=== PATIENT | male | born 1945 | race Caucasian/White ===

== ENCOUNTER → 2018-11-25 16:38 | Outpatient (CLI) | payer MEDICARE, BC, SELFPAY ==
[2018-11-25 18:12] LABS: BUN Creatinine Ratio 25.7 (6-22); Blood Urea Nitrogen 36 mg/dL (9-20); Calcium 10.1 mg/dL (8.4-10.2); Carbon Dioxide 27 mmol/L (22-32); Chloride 100 mmol/L (98-107); Estimated Glomerular Filt Rate 49.8 mL/min (>60); Glucose 110 mg/dL (80-110); HEMOLYSIS < 15 (0-50); Potassium 4.6 mmol/L (3.4-5.1); Sodium 138 mmol/L (137-145)
[2018-11-28 10:58] LABS: Ionized Calcium 5.2 mg/dL (4.8-5.6)
[2018-11-28 14:35] LABS: Parathyroid Hormone Int 23 pg/mL (14-64)
== END ==
PROVIDERS: PCP Internal Medicine; Visit Provider Internal Medicine
DX: E83.52 Hypercalcemia (principal); N18.2 Chronic kidney disease, stage 2 (mild)
CPT/HCPCS: 36415; 80048; 82330; 83970

== ENCOUNTER → 2019-11-27 10:12 | Outpatient (CLI) | payer MEDICARE, BC, SELFPAY ==
[2019-11-27 11:42] LABS: Albumin 4.6 g/dL (3.5-5.0); BUN Creatinine Ratio 20.3 (6-22); Blood Urea Nitrogen 27 mg/dL (9-20); Calcium 10.2 mg/dL (8.4-10.2); Carbon Dioxide 27 mmol/L (22-32); Chloride 103 mmol/L (98-107); Estimated Glomerular Filt Rate 52.7 mL/min (>60); Glucose 111 mg/dL (80-110); HEMOLYSIS < 15 (0-50); Phosphorous 3.7 mg/dL (2.3-3.7); Potassium 4.5 mmol/L (3.4-5.1); Sodium 139 mmol/L (137-145)
[2019-11-30 10:18] LABS: Lamotrigine Lamictal 6.2 ug/mL (2.0-20.0)
== END ==
PROVIDERS: PCP Internal Medicine; Referring Provider Psychiatry & Neurology Neurology; Visit Provider Psychiatry & Neurology Neurology
DX: G40.219 Localization-related (focal) (partial) symptomatic epilepsy and epileptic syndromes with complex partial seizures, intractable, without status epilepticus (principal)
CPT/HCPCS: 36415; 80069; 80175

== ENCOUNTER → 2020-08-11 09:31 | Outpatient (CLI) | payer MEDICARE, BC, SELFPAY ==
--- NOTE | 2020-08-11 09:34 | DI.RAD.S_ITS ---
PROCEDURE: XR HIP W PEL IF DONE RT 2V INDICATIONS: left groin pain TECHNIQUE: 3 views of the hip were acquired. COMPARISON: None. FINDINGS: Bones: No fractures or dislocations. No suspicious bony lesions. The visualized pelvic ring appears intact. Soft tissues: No suspicious soft tissue calcifications or masses. 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 A prior right dynamic hip screw is present, showing no evidence of loosening or disruption. Dictated by: Ricky Couch M.D. on 08/11/2020 at 10:53 Approved by: Ricky Couch M.D. on 08/11/2020 at 10:54
== END ==
PROVIDERS: PCP Internal Medicine; Referring Provider Internal Medicine; Visit Provider Internal Medicine
DX: R10.32 Left lower quadrant pain (principal); M16.12 Unilateral primary osteoarthritis, left hip
CPT/HCPCS: 73502

== ENCOUNTER → 2020-09-16 07:43 | Outpatient (CLI) | payer MEDICARE, BC, SELFPAY ==
[2020-09-16] MEDS: COVID-19 VACC #1, MRNA(MOD) 100 MCG/0.5 ML VIAL IM (07:47)
== END ==
PROVIDERS: PCP Internal Medicine; Visit Provider Internal Medicine
DX: Z23 Encounter for immunization (principal)
CPT/HCPCS: 0011A; 91301

== ENCOUNTER → 2020-10-14 07:54 | Outpatient (CLI) | payer MEDICARE, BC, SELFPAY ==
[2020-10-14] MEDS: COVID-19 VACC #2, MRNA(MOD) 100 MCG/0.5 ML VIAL IM (07:58)
== END ==
PROVIDERS: PCP Internal Medicine; Visit Provider Internal Medicine
DX: Z23 Encounter for immunization (principal)
CPT/HCPCS: 0012A; 91301

== ENCOUNTER → 2020-12-23 14:21 | Outpatient (CLI) | payer MEDICARE, BC, SELFPAY ==
[2020-12-23 15:44] LABS: C-Reactive Protein Quant < 0.5 mg/dL (<1.0); Uric Acid 8.7 mg/dL (3.5-8.5)
[2020-12-23 15:47] LABS: Erythrocyte Sedimentation Rate 3 MM/HR (0-15)
== END ==
PROVIDERS: PCP Internal Medicine; Referring Provider Internal Medicine; Visit Provider Internal Medicine
DX: M12.9 Arthropathy, unspecified (principal)
CPT/HCPCS: 36415; 84550; 85651; 86140

== ENCOUNTER 2021-02-09 12:37 | Emergency (ER) | payer MEDICARE, BC, SELFPAY ==
[2021-02-09 12:55] VITALS: BP 191/89; PULSE 61; RESP 14; TEMP 36.4; O2SAT 98; BMI 25.0
--- NOTE | 2021-02-09 13:01 | DI.RAD.S_ITS ---
PROCEDURE: XR LUMBAR SPINE 2-3V INDICATIONS: back pain TECHNIQUE: 3 views of the lumbar spine were acquired. COMPARISON: None. FINDINGS: Bones: 5 [id number] vertebrae are present. There is mild S-shaped scoliosis of lower thoracic and lumbar spine.. No vertebral body compression fractures. No spondylolisthesis. Mild degenerative endplate changes and bilateral facet arthrosis throughout No suspicious bony lesions. Soft tissues: Overlying bowel gas pattern is normal. Atherosclerotic calcifications throughout abdominal aorta and bilateral iliac arteries are seen. IMPRESSION: Mild scoliosis of thoracic and lumbar spine. No acute compression fracture or spondylolisthesis. Mild degenerative endplate changes are noted throughout lumbar spine. Dictated by: Gerardo Jones M.D. on 02/09/2021 at 13:38 Approved by: Gerardo Jones M.D. on 02/09/2021 at 13:40
[2021-02-09 14:57] VITALS: BP 134/84; PULSE 64; O2SAT 97
--- NOTE | 2021-02-09 18:13 | ED.BACK ---
HPI - Back Pain/Injury General Chief Complaint: Back Pain/Injury Stated Complaint: Lower Back Pain Time Seen by Provider: 02/09/21 17:42 Source: patient Limitations: no limitations History of Present Illness HPI Narrative: 75-year-old gentleman with a history of hyperlipidemia seizures and occasional back pain. He presents today complaining of low back pain and muscle spasm bilaterally lumbar area that is been present for about 3 weeks. He notes that his symptoms started on or about January 20 with no precipitating event or trauma he was seen by his primary care doctor on the and had a Toradol shot on the . Symptoms have not specifically improved. He describes it as a tight achy nonradicular pain not associated with any other findings. He does not have any abdominal pain, no constipation no spine interventions, no IV drug use and no history of any cancers. Today he has tried cyclobenzaprine which has not been effective. Was recently started on meloxicam and has taken 2 doses but has not seen that much change. Intermittent doses of ibuprofen ranging from 200-600 mg have not been that effective either. He notes that he does have some easy stretches that he has been trying at home but this too has not been helping. Related Data Home Medications Medication Instructions Recorded Confirmed cholecalciferol (vitamin D3) 125 5,000 unit PO DAILY 11/25/18 01/24/21 mcg (5,000 unit) capsule lamotrigine 100 mg tablet 300 mg PO BID tab 11/25/18 01/24/21 mecobalamin (vitamin B12) 1,000 1,000 mcg SL DAILY 11/25/18 01/24/21 mcg disintegrating tablet,sublingual vitamin B complex 1 tab PO DAILY 01/06/19 01/24/21 vit C,E,zinc,copper-mkriz0s 250 1 cap PO DAILY 12/23/20 01/24/21 mg-lutein 5 mg-zeaxanthin 1 mg capsule Previous Rx's Medication Instructions Recorded amlodipine 5 mg tablet 5 mg PO DAILY #90 tab 09/27/20 hydrochlorothiazide 25 mg tablet 25 mg PO QDAY #90 tab 09/27/20 losartan 25 mg tablet 25 mg PO DAILY #90 tab 09/27/20 diazepam 5 mg PO BID PRN #10 tab 02/09/21 Allergies Allergy/AdvReac Type Severity Reaction Status Date / Time No Known Drug Allergies Allergy Verified 02/09/21 12:55 Review of Systems Review of Systems Narrative: Remainder of complete review of systems is otherwise unremarkable except for that included in the HPI. Patient History Medical History Aortic valve sclerosis Balance problems (11/11/17) Benign prostatic hyperplasia (12/26/15) Chronic fatigue (03/28/16) Chronic left shoulder pain (01/30/17) Chronic renal failure, stage 2 (mild) Chronic right shoulder pain (11/11/17) Depression Epilepsy Essential hypertension Femur fracture, right (1986) Foot fracture, left (2002) Hearing loss History of seizure disorder (12/26/15) Low back pain (~11/2016) Lung nodule (12/26/15) Memory deficit Mixed hyperlipidemia Osteopenia (04/04/17) Shoulder dislocation Shoulder pain Skull fracture (1967) Surgical History Hx of discectomy Hx of surgical procedure Hx of transurethral resection of prostate (03/2015) Family History Father No problems noted. Mother No problems noted. Social History Smoking Status: Never smoker Smoking Status: Never smoker alcohol intake frequency: 3 or more drinks per day Substance Use Type: does not use Exam Narrative Exam Narrative: General: Alert appropriate in mild pain more comfortable when gently swaying from foot to foot while standing Respiratory: Able to speak in full sentences, no obvious respiratory distress Abdomen: Soft, no bruits no palpable masses Skin: No obvious rashes, warm and dry Neurologic: Grossly intact no obvious asymmetries or abnormalities Psych: appropriate insight and affect, cooperative Spine: No point tenderness along the thoracic or lumbar spine. He has some mild paraspinous spasm in the L4-L5 area that radiates into the top of his buttocks. There are no rashes. Initial Vital Signs Initial Vital Signs: Vital Signs Temperature 97.5 F L 02/09/21 12:55 Pulse Rate 61 02/09/21 12:55 Respiratory Rate 14 02/09/21 12:55 Blood Pressure 191/89 H 02/09/21 12:55 Pulse Oximetry 98 02/09/21 12:55 Course Orders Ordered: ED Orders 02/09/21 13:01 XR LSPINE 2-3 views [XR lumbar spine 2-3V] Stat Discontinued Medications Ketorolac Tromethamine (Ketorolac 30 Mg/Ml Vial) 30 mg IM NOW ONE Stop: 02/09/21 18:28 Vital Signs Vital signs: Vital Signs - 8 hr 02/09/21 12:55 02/09/21 14:57 Temperature 97.5 F L Pulse Rate 61 64 Respiratory Rate 14 Blood Pressure 191/89 H 134/84 Pulse Oximetry 98 [address] [facility] - Back Pain/Injury Medical Records Attestation: I reviewed the patient's medical records. Imaging Data X-ray lumbar spine: Radiologist's Impression: FINDINGS: Bones: 5 [id number] vertebrae are present. There is mild S-shaped scoliosis of lower thoracic and lumbar spine.. No vertebral body compression fractures. No spondylolisthesis. Mild degenerative endplate changes and bilateral facet arthrosis throughout No suspicious bony lesions. Soft tissues: Overlying bowel gas pattern is normal. Atherosclerotic calcifications throughout abdominal aorta and bilateral iliac arteries are seen. IMPRESSION: Mild scoliosis of thoracic and lumbar spine. No acute compression fracture or spondylolisthesis. Mild degenerative endplate changes are noted throughout lumbar spine. Dictated by: Gerardo Jones M.D. on 02/09/2021 at 13:38 MDM Narrative Medical decision making narrative: 75-year-old gentleman with 3 weeks of low back pain that is mainly consistent of spasm. He has not found much relief with nonsteroidals or cyclobenzaprine. Recently started on meloxicam. Has no ?red flag? findings to suggest severe pathology. Because of the duration of findings lumbar spine films are done today and reveal no significant abnormalities aside from mild scoliosis and no evidence of any lytic lesions that might be contributing to his pain. he did request a shot of Toradol in the emergency department which was given with significant relief of pain. Encouraged him to continue the meloxicam recently prescribed, a brief course of Valium for muscle spasm and a referral to physical therapy or all given. Questions were answered and he is safe for home discharge Discharge Plan Departure Patient Disposition: Home Clinical Impression: Acute back pain Qualifiers: Back pain location: low back pain Back pain laterality: bilateral Sciatica presence: without sciatica Qualified Code(s): M54.5 - Low back pain Instructions: DI for Low Back Pain Activity Restrictions/Additional Instructions: Thank you for coming in today I am sorry that you have been having such issues with her back. I would recommend that you continue the meloxicam that was prescribed by Dr. Diana. For a muscle relaxant, using diazepam sparingly may help you sleep better I think the most important point in getting you back to fully healthy is going to be physical therapy. I would encourage you to schedule a follow-up with Dr. Diana Prescriptions: New diazepam 5 mg tablet 5 mg PO BID PRN (Reason: muscle spasm) Qty: 10 RF: 0 No Action amlodipine 5 mg tablet 5 mg PO DAILY Qty: 90 RF: 3 hydrochlorothiazide 25 mg tablet 25 mg PO QDAY Qty: 90 RF: 3 losartan 25 mg tablet 25 mg PO DAILY Qty: 90 RF: 3 lamotrigine 100 mg tablet 300 mg PO BID RF: 0 cholecalciferol (vitamin D3) 5,000 unit capsule 5,000 unit PO DAILY RF: 0 mecobalamin (vitamin B12) 1,000 mcg tablet,disintegrating 1,000 mcg SL DAILY RF: 0 vitamin B complex tablet 1 tab PO DAILY RF: 0 Ocuvite Adult 50 Plus 250-5-1 mg capsule 1 cap PO DAILY RF: 0 Referrals: Jaime Cole MD [Primary Care Provider] -
== END 2021-02-09 18:40 | disposition home or self-care (01) ==
PROVIDERS: Emergency Provider Emergency Medicine; PCP Internal Medicine
DX: M54.5 Low back pain (principal)
CPT/HCPCS: 72100; 99281; 99283

== ENCOUNTER → 2021-06-30 10:33 | Outpatient (CLI) | payer MEDICARE, BC, SELFPAY ==
[2021-06-30] MEDS: COVID-19 VACC #3, MRNA(MOD) 50 MCG/0.25 ML VIAL IM (10:42)
== END ==
PROVIDERS: PCP Internal Medicine; Visit Provider Internal Medicine
DX: Z23 Encounter for immunization (principal)
CPT/HCPCS: 0013A; 91301

== ENCOUNTER → 2021-07-17 08:19 | Outpatient (CLI) | payer MEDICARE, BC, SELFPAY ==
[2021-07-17 11:55] LABS: COVID19 -Nasal RAPID Negative (Negative)
== END ==
PROVIDERS: PCP Internal Medicine; Visit Provider Physician Assistant
DX: Z20.822 Contact with and (suspected) exposure to COVID-19 (principal)
CPT/HCPCS: 87635; C9803

== ENCOUNTER 2021-07-18 06:54 | Day surgery (SDC) | payer MEDICARE, BC, SELFPAY ==
[2021-07-18 07:12] VITALS: BP 132/82; PULSE 65; RESP 16; TEMP 36.5; O2SAT 98; BMI 25.0
[2021-07-18] MEDS: CATARACT EYE COMPOUND (10 DROPS/SYRINGE) 3 DROPS EYE-OP ×3 (07:17→07:27)
[2021-07-18] MEDS: PROPARACAINE 0.5% OPHTH SOL 2 DROPS EYE-OP (07:21)
--- NOTE | 2021-07-18 08:06 | PM.PREOP ---
Pre-operative Note Interval Note History & Physical reviewed/Exam performed by Physician: Yes Changes to H&P: No
--- NOTE | 2021-07-18 08:06 | PM.OP.1 ---
Operative Date/Time/Diagnoses Pre-op diagnosis: Nuclear cataract right eye Procedure & Clinicians Procedure: Cataract Surgery Same procedure as scheduled: Yes Surgeon: Chan Montes Anesthesia Type: MAC +/- and Sedation Operative Notes Procedure in detail: Patient brought to the operating suite. Tetracaine drops placed in the right eye. Patient was prepped and draped in sterile manner. Wire lid speculum was placed in the eye. Betadine drops were placed on the eye. This was irrigated. Lidocaine jelly was placed on the eye. A paracentesis port was created with a side-port blade. 0.1 mL 1% preservative free lidocaine was injected into the anterior chamber. The anterior chamber was deepened with viscoelastic. 2.6 mm keratome was used to create a temporal clear corneal incision. Cystotome and Utrata forceps were used to create continuous tear capsulorrhexis. Balanced salt solution was used to hydro dissect the nucleus. The phacoemulsification handpiece was inserted and the nucleus was removed using the stop and chop technique. The irrigation aspiration handpiece was inserted and the remaining cortex was removed. Anterior chamber was deepened with viscoelastic. An Manjarrez DIB00 intraocular lens with a power of 22.5 was injected into the capsular bag. Irrigation aspiration handpiece was inserted and the remaining viscoelastic was removed. Incision was hydrated with balanced salt solution and found to be leak free with pressure with Weck-Narcisa sponges. 0.1 mL Vigamox injected anterior chamber. 0.3 mL Kenalog 10 mg was injected subconjunctivally. Lid speculum was removed. The patient left the operating room in excellent condition. Complications: none Post-operative Condition: stable Disposition: same day surgery
[2021-07-18] MEDS: HYALURONATE SODIUM 30 MG-10 MG/ML SYRINGES 1 BOX INTRAOCULA (08:24)
[2021-07-18] MEDS: BALANCED SALT IRRIG SOLN NO.2 500 ML, EPINEPHrine 1 MG IRR (08:25)
[2021-07-18] MEDS: TRIAMCINOLONE 50 MG/5 ML VIAL INJ (08:25)
[2021-07-18] MEDS: MOXIFLOXACIN INJ 4 MG/0.8 ML VIAL 0.5 MG EYE-OP (08:25)
[2021-07-18] MEDS: PHENYLEPHRINE/LIDOCAINE VIAL (OR) 0.2 ML EYE-OP (08:25)
[2021-07-18] MEDS: LIDOCAINE 2% (GLYDO) 6 ML GEL TOP (08:26)
[2021-07-18] MEDS: TETRACAINE 0.5% OPHTH DROPS 4 ML 2 DROPS EYE-OP (08:26)
[2021-07-18 08:37] VITALS: BP 123/74; PULSE 56; RESP 16; TEMP 36.5; O2SAT 98
== END 2021-07-18 08:59 | disposition home or self-care (01) ==
PROVIDERS: PCP Internal Medicine; Referring Provider Ophthalmology; Visit Provider Ophthalmology
PROC: (CPT 66984; principal; 2021-07-18 08:15)
DX: H25.11 Age-related nuclear cataract, right eye (principal); I10 Essential (primary) hypertension
CPT/HCPCS: 66984; J0171; J2250; J3301

== ENCOUNTER → 2021-07-31 10:10 | Outpatient (CLI) | payer MEDICARE, BC, SELFPAY ==
[2021-07-31 13:35] LABS: COVID19 -Nasal RAPID Negative (Negative)
== END ==
PROVIDERS: PCP Internal Medicine; Visit Provider Nurse Practitioner Family
DX: Z20.822 Contact with and (suspected) exposure to COVID-19 (principal)
CPT/HCPCS: 87635; C9803

== ENCOUNTER 2021-08-01 08:49 | Day surgery (SDC) | payer MEDICARE, BC, SELFPAY ==
[2021-08-01 09:08] VITALS: BP 134/80; PULSE 56; RESP 18; TEMP 36.6; O2SAT 98; BMI 25.0
[2021-08-01] MEDS: PROPARACAINE 0.5% OPHTH SOL 2 DROPS EYE-OP (09:19)
[2021-08-01] MEDS: CATARACT EYE COMPOUND (10 DROPS/SYRINGE) 3 DROPS EYE-OP (09:23)
--- NOTE | 2021-08-01 10:06 | PM.PREOP ---
Pre-operative Note Interval Note History & Physical reviewed/Exam performed by Physician: Yes Changes to H&P: No
--- NOTE | 2021-08-01 10:06 | PM.OP.1 ---
Operative Date/Time/Diagnoses Pre-op diagnosis: Nuclear Cataract Left eye Post-op diagnosis: same Procedure & Clinicians Same procedure as scheduled: Yes Surgeon: Chan Montes Anesthesia Type: MAC +/- and Sedation Operative Notes Procedure in detail: Patient brought to the operating suite. Tetracaine drops placed in the left eye. Patient was prepped and draped in sterile manner. Wire lid speculum was placed in the eye. Betadine drops were placed on the eye. This was irrigated. Lidocaine jelly was placed on the eye. A paracentesis port was created with a side-port blade. 0.1 mL 1% preservative free lidocaine was injected into the anterior chamber. The anterior chamber was deepened with viscoelastic. 2.6 mm keratome was used to create a temporal clear corneal incision. Cystotome and Utrata forceps were used to create continuous tear capsulorrhexis. Balanced salt solution was used to hydro dissect the nucleus. The phacoemulsification handpiece was inserted and the nucleus was removed using the stop and chop technique. The irrigation aspiration handpiece was inserted and the remaining cortex was removed. Anterior chamber was deepened with viscoelastic. An Manjarrez DIB00 intraocular lens with a power of 22.5 was injected into the capsular bag. Irrigation aspiration handpiece was inserted and the remaining viscoelastic was removed. Incision was hydrated with balanced salt solution and found to be leak free with pressure with Weck-Narcisa sponges. 0.1 mL Vigamox injected anterior chamber. 0.3 mL Kenalog 10 mg was injected subconjunctivally. Lid speculum was removed. The patient left the operating room in excellent condition. Complications: none Post-operative Condition: stable Disposition: same day surgery
[2021-08-01] MEDS: HYALURONATE SODIUM 30 MG-10 MG/ML SYRINGES 1 BOX INTRAOCULA (10:24)
[2021-08-01] MEDS: PHENYLEPHRINE/LIDOCAINE VIAL (OR) 0.2 ML EYE-OP (10:24)
[2021-08-01] MEDS: MOXIFLOXACIN INJ 4 MG/0.8 ML VIAL 0.5 MG EYE-OP (10:24)
[2021-08-01] MEDS: BALANCED SALT IRRIG SOLN NO.2 500 ML, EPINEPHrine 1 MG IRR (10:25)
[2021-08-01] MEDS: LIDOCAINE 2% (GLYDO) 6 ML GEL TOP (10:25)
[2021-08-01] MEDS: TETRACAINE 0.5% OPHTH DROPS 4 ML 2 DROPS EYE-OP (10:25)
[2021-08-01] MEDS: TRIAMCINOLONE 50 MG/5 ML VIAL INJ (10:25)
[2021-08-01 10:44] VITALS: PULSE 124; RESP 16; TEMP 36.2; O2SAT 96
== END 2021-08-01 11:10 | disposition home or self-care (01) ==
PROVIDERS: PCP Internal Medicine; Referring Provider Ophthalmology; Visit Provider Ophthalmology
PROC: (CPT 66984; principal; 2021-08-01 10:15)
DX: H25.12 Age-related nuclear cataract, left eye (principal); I10 Essential (primary) hypertension; N40.0 Benign prostatic hyperplasia without lower urinary tract symptoms
CPT/HCPCS: 66984; J0171; J2250; J3301

== ENCOUNTER 2025-04-19 12:46 | Emergency (ER) | payer MEDICARE, BC, SELFPAY ==
[2025-04-19] VITALS (9 sets, daily range): BP systolic 125–138; BP diastolic 59–75; PULSE 59–98; RESP 16–17; TEMP 37.3; O2SAT 91–97; BMI 26.4
--- NOTE | 2025-04-19 13:03 | DI.RAD.S_ITS ---
PROCEDURE: XR KNEE LT 1TO2V INDICATIONS: chainsaw accident TECHNIQUE: 2 views of the knee were acquired. COMPARISON: None. FINDINGS: Bones: No fractures or dislocations. No suspicious bony lesions. Soft tissues: Moderate joint effusion. No suspicious soft tissue calcifications. IMPRESSION: Moderate effusion. No visualized acute fracture or dislocation. However, if clinical concern and/or pain persist, short interval imaging followup in 7-10 days is recommended, as occult injury cannot be definitively excluded. Dictated by: Teodora Orellaan M.D. on 04/19/2025 at 14:11 Approved by: Teodora Orellana M.D. on 04/19/2025 at 14:12
--- NOTE | 2025-04-19 13:14 | DI.CT.S_ITS ---
PROCEDURE: CT LE LT W CON INDICATIONS: chain saw accident TECHNIQUE: Noncontrast 3 mm axial sections acquired of the lower extremity , with coronal and sagittal reformats. COMPARISON: None. FINDINGS: Image quality: Excellent. Bones: There is a 4 mm calcification from the superior in direct approximation to the area of skin defect. Patella is in anatomic alignment. Soft tissues: Several small foci of air within the subcutaneous fat as well as anterior ligamentous structures superior to the knee are present. Small soft tissue defect is present. IMPRESSION: 4 mm superior patellar fracture. Laceration at the level the patella with soft tissue air along the subcutaneous fat and quadriceps tendon. Patellar remains in anatomic alignment. Dictated by: Teodora Orellana M.D. on 04/19/2025 at 14:13 Approved by: Teodora Orellana M.D. on 04/19/2025 at 14:17
[2025-04-19] MEDS: TET,DIPH,PERTUSS(ACELL),VAC/PF 0.5 ML SYRINGE IM (13:52)
[2025-04-19] MEDS: ONDANSETRON 4 MG/2 ML INJ IV (15:33)
--- NOTE | 2025-04-19 15:36 | ED.TRAUMA ---
HPI - Trauma General Chief Complaint: Trauma Stated Complaint: Chainsaw injury to knee; bleeding Time Seen by Provider: 04/19/25 14:40 Source: patient Mode of arrival: Ambulatory History of Present Illness HPI narrative: This 79 yo male presents with the history that he was cutting down trees with a chainsaw on his property and got the saw caught in one log shelter through and it kicked back and cut his left leg over the anterior aspect of the knee. Tetanus is uncertain. Still able to walk on leg. MD complaint: injury Onset (ago): hour(s) Loss of Consciousness: no Location - Extremities: Left: knee (long laceration over anterior aspect of left knee,. ) Severity: moderate Related Data Home Medications ?Medication ?Instructions ?Recorded ?Confirmed cholecalciferol (vitamin D3) 125 5,000 unit PO DAILY 11/25/18 03/05/23 mcg (5,000 unit) capsule lamotrigine 100 mg tablet 300 mg PO BID 11/25/18 03/05/23 mecobalamin (vitamin B12) 1,000 1,000 mcg sublingual DAILY 11/25/18 03/05/23 mcg disintegrating tablet,sublingual vitamin B complex 1 tab PO DAILY 01/06/19 03/05/23 vit C,E,copper,zinc-[id number] 250 1 cap PO DAILY 12/23/20 03/05/23 mg-lutein 5 mg-zeaxanthin 1 mg capsule (Ocuvite Adult 50 Plus) amlodipine 10 mg tablet 10 mg PO DAILY 03/05/23 03/05/23 losartan 50 mg tablet 50 mg PO DAILY 03/05/23 03/05/23 Previous Rx's ?Medication ?Instructions ?Recorded hydrochlorothiazide 25 mg tablet 25 mg PO QDAY #90 tabs 09/27/20 diazepam 5 mg tablet 5 mg PO BID PRN muscle spasm #10 02/09/21 tabs cyclobenzaprine 10 mg tablet 10 mg PO BEDTIME PRN muscle spasm 03/05/23 #30 tabs Allergies Allergy/AdvReac Type Severity Reaction Status Date / Time No Known Drug Allergies Allergy Verified 03/05/23 09:25 Review of Systems Review of Systems ROS Unobtainable: All systems reviewed & are unremarkable except as noted in HPI and below Constitutional Comments: Malaise secondary to long lac over left anterior knee, Cardiovascular Cardiovascular: Reports system reviewed and no additional complaints, except as documented Respiratory Respiratory: Reports system reviewed and no additional complaints, except as documented Musculoskeletal Comments: Long laceration over left anterior knee , patient stil able to move knee and stand on it. Patient History Medical History (Updated 03/05/23 @ 12:25 by Tigre Smith MD) Cervicalgia Chronic renal failure, stage 2 (mild) Aortic valve sclerosis Mixed hyperlipidemia Essential hypertension Shoulder dislocation Shoulder pain Hearing loss Low back pain (~11/2016) Memory deficit Depression Foot fracture, left (2002) Femur fracture, right (1986) Skull fracture (1967) Epilepsy Chronic right shoulder pain (11/11/17) Balance problems (11/11/17) Osteopenia (04/04/17) Chronic left shoulder pain (01/30/17) Chronic fatigue (03/28/16) History of seizure disorder (12/26/15) Benign prostatic hyperplasia (12/26/15) Lung nodule (12/26/15) Surgical History Hx of discectomy Hx of surgical procedure Hx of transurethral resection of prostate (03/2015) Family History Father No problems noted. Mother No problems noted. Social History household members: spouse Smoking Status: Never smoker alcohol intake: current Smoking Status: Never smoker alcohol intake frequency: 3 or more drinks per day Exam Initial Vital Signs Initial Vital Signs: Vital Signs Temperature 99.2 F 04/19/25 12:52 Pulse Rate 98 H 04/19/25 12:52 Respiratory Rate 16 04/19/25 12:52 Blood Pressure 137/75 04/19/25 12:52 Pulse Oximetry 97 04/19/25 12:52 Oxygen Delivery Method Room Air 04/19/25 12:52 Const General: cooperative and healthy appearing Other: Tall adult male with Spanish accent. Visible thick gauze dressing over left knee. Resp Other: Clear BS bilaterally Cardio Other: RR without murmur Extrem Other: Visible Long curvilinear laceration measuring 6 cm over left anterior knee which is at least 1 cm deep . Does not appear to have severed patellar tendon as can lift left leg straight legged and can bend knee without problem. NROM of left ankle and foot. Intact N/V distally. Course Orders Ordered: ED Orders 04/19/25 13:03 XR knee LT 1to2V Stat 04/19/25 13:14 CT LE LT wo con Stat Cefazolin Sodium 1 gm/ Sodium (Chloride) 100 mls @ 200 mls/hr IV NOW ONE Stop: 04/19/25 15:55 Lactated Ringer's (Lactated Ringers) 1,000 mls @ 1,000 mls/hr IV BOLUS ONE Stop: 04/19/25 16:34 Discontinued Medications Diphtheria/Tetanus/Acell Pertussis (Tet,Diph,Pertuss(Acell),Vac/Pf 0.5 Ml Syringe) 0.5 ml IM .ONCE ONE Stop: 04/19/25 13:03 Last Admin: 04/19/25 13:52 Dose: 0.5 ml Documented By: MARLENE Hydromorphone HCl (Hydromorphone 1 Mg/Ml Syringe) 1 mg IV NOW ONE Stop: 04/19/25 15:13 Last Admin: 04/19/25 15:33 Dose: 1 mg Documented By: MARLENE Lidocaine HCl (Lidocaine 1% 20 Ml) 20 ml INJ INTRA-OP ONE Stop: 04/19/25 15:35 Ondansetron HCl (Ondansetron 4 Mg/2 Ml Inj) 4 mg IV NOW ONE Stop: 04/19/25 15:13 Last Admin: 04/19/25 15:33 Dose: 4 mg Documented By: MARLENE Vital Signs Vital signs: Vital Signs - 8 hr 04/19/25 12:52 Temperature 99.2 F Pulse Rate 98 H Respiratory Rate 16 Blood Pressure 137/75 Pulse Oximetry 97 Oxygen Delivery Method Room Air MDM - Trauma Differential Diagnosis Discussed with:: Differential includes long simple laceration of knee , joint space infiltration by laceration . patellar tendon laceration. Discussed with Dr. Romero as appeared might infiltrate joint. He felt patient's patellar tendon was intact and he wanted CT knee to make certain no infiltration of joint. CT showed free air along patellar tendon but no air in knee joint. Dr. Romero saw patient . Wanted irrigated with 2 liters NS which was done . He is going to do a simple suture repair of laceration and will put in knee immobilizer. Wants p Keflex qid and pain medicine. Will see for recheck. Sutures probably out in 10 days. MDM Narrative Medical decision making narrative: Follow-up Dr. Romero, orthopedics on for wound check. See Dr. Romero's procedure note. Will prescribe keflex for 7 days and Percocet prn for 3 days. Will put patient in knee immobilizer Discharge Plan Departure Prescriptions: No Action hydrochlorothiazide 25 mg tablet 25 mg PO QDAY Qty: 90 3RF lamotrigine 100 mg tablet 300 mg PO BID cholecalciferol (vitamin D3) 5,000 unit capsule 5,000 unit PO DAILY mecobalamin (vitamin B12) 1,000 mcg tablet,disintegrating 1,000 mcg SL DAILY vitamin B complex tablet 1 tab PO DAILY Ocuvite Adult 50 Plus 250-5-1 mg capsule 1 cap PO DAILY diazepam 5 mg tablet 5 mg PO BID PRN (Reason: muscle spasm) Qty: 10 0RF amlodipine 10 mg tablet 10 mg PO DAILY losartan 50 mg tablet 50 mg PO DAILY cyclobenzaprine 10 mg tablet 10 mg PO BEDTIME PRN (Reason: muscle spasm) Qty: 30 0RF Referrals: Jaime Cole MD [Primary Care Provider, Internal Medicine]
[2025-04-19] MEDS: LIDOCAINE 1% 20 ML INJ (16:00)
[2025-04-19] MEDS: LACTATED RINGERS 1,000 ML 1000 ML IV (16:00)
--- NOTE | 2025-04-19 16:30 | PC.NURSE ---
Dr. Vail sutured and dressed wound on lEFT knee and wrapped with lydia wrap. this nurse applied knee immobilizer on. pt tolerated well.
--- NOTE | 2025-04-19 18:17 | PM.HP.IH.1 ---
History of Present Illness History of Present Illness Chief complaint: Chainsaw injury to knee; bleeding [facility] Medical History (Updated 04/19/25 @ 18:27 by Herbert Reddy MD) Cervicalgia Chronic renal failure, stage 2 (mild) Aortic valve sclerosis Mixed hyperlipidemia Essential hypertension Shoulder dislocation Shoulder pain Hearing loss Low back pain (~11/2016) Memory deficit Depression Foot fracture, left (2002) Femur fracture, right (1986) Skull fracture (1967) Epilepsy Chronic right shoulder pain (11/11/17) Balance problems (11/11/17) Osteopenia (04/04/17) Chronic left shoulder pain (01/30/17) Chronic fatigue (03/28/16) History of seizure disorder (12/26/15) Benign prostatic hyperplasia (12/26/15) Lung nodule (12/26/15) Surgical History Hx of discectomy Hx of surgical procedure Hx of transurethral resection of prostate (03/2015) Family History Father No problems noted. Mother No problems noted. Social History household members: spouse Smoking Status: Never smoker alcohol intake: current Meds Home Medications and Allergies Home Medications ?Medication ?Instructions ?Recorded ?Confirmed ?Type cholecalciferol (vitamin D3) 125 5,000 unit PO DAILY 11/25/18 03/05/23 History mcg (5,000 unit) capsule lamotrigine 100 mg tablet 300 mg PO BID 11/25/18 03/05/23 History mecobalamin (vitamin B12) 1,000 1,000 mcg sublingual DAILY 11/25/18 03/05/23 History mcg disintegrating tablet,sublingual vitamin B complex 1 tab PO DAILY 01/06/19 03/05/23 History hydrochlorothiazide 25 mg tablet 25 mg PO QDAY #90 tabs 09/27/20 03/05/23 Rx vit C,E,copper,zinc-hidft2r 250 1 cap PO DAILY 12/23/20 03/05/23 History mg-lutein 5 mg-zeaxanthin 1 mg capsule (Ocuvite Adult 50 Plus) diazepam 5 mg tablet 5 mg PO BID PRN muscle spasm #10 02/09/21 03/05/23 Rx tabs amlodipine 10 mg tablet 10 mg PO DAILY 03/05/23 03/05/23 History cyclobenzaprine 10 mg tablet 10 mg PO BEDTIME PRN muscle spasm 03/05/23 03/05/23 Rx #30 tabs losartan 50 mg tablet 50 mg PO DAILY 03/05/23 03/05/23 History cephalexin 500 mg capsule 500 mg PO QID infection #28 caps 04/19/25 Rx oxycodone-acetaminophen 5 mg-325 1 tab PO QID PRN pain #10 tabs 04/19/25 Rx mg tablet (Percocet) Allergies Allergy/AdvReac Type Severity Reaction Status Date / Time No Known Drug Allergies Allergy Verified 03/05/23 09:25 Exam Vital Signs (past 8 hours): - 04/19/25 12:52 04/19/25 13:07 04/19/25 13:07 Temperature 99.2 F Pulse Rate 98 H 83 Respiratory Rate 16 Blood Pressure 137/75 138/66 Pulse Oximetry 97 96 Oxygen Delivery Method Room Air 04/19/25 13:38 04/19/25 13:47 04/19/25 13:47 Temperature Pulse Rate 63 61 Respiratory Rate 16 Blood Pressure 125/59 L Pulse Oximetry 96 95 Oxygen Delivery Method Room Air 04/19/25 14:00 04/19/25 14:00 04/19/25 14:39 Temperature Pulse Rate 59 L Respiratory Rate Blood Pressure 129/64 Pulse Oximetry 94 91 Oxygen Delivery Method 04/19/25 15:00 04/19/25 17:10 04/19/25 17:11 Temperature Pulse Rate 68 Respiratory Rate 16 Blood Pressure 130/70 Pulse Oximetry 96 96 Oxygen Delivery Method Room Air 04/19/25 17:11 Temperature Pulse Rate Respiratory Rate 17 Blood Pressure Pulse Oximetry 95 Oxygen Delivery Method Room Air Oxygen Delivery Method Room Air Assessment & Plan Assessment and plan (1) Laceration of knee: Qualifiers: Encounter type: initial encounter Laterality: left Qualified Code(s): S81.012A - Laceration without foreign body, left knee, initial encounter Status: Acute Assessment & Plan narrative: CC: Left Thigh Laceration HPI: 79yo M Presents to the orthopedic clinic for a left thigh laceration.? He reports that he was attempting to cut a tree branch with a chainsaw and he lost control of the chain saw and cut his left thigh.? He had immediate pain and bleeding from the left thigh.? He then presented to the emergency department who consulted Orthopedics. ? Patient reports he has isolated pain to the left thigh.? Denies loss of function.? Denies numbness and tingling. EXAM: LEFT ?Knee: ? Laceration over the superior pole of the patella.? There is active bleeding.? No obvious tendon visible through the wound. ? Knee range motion deferred. ? Patient able to perform a straight leg raise.? Patient able to extend the knee from 40? of flexion. Neurovascular exam: ??Fires q/h/ta/gc/ehl; SILT s/s/sp/dp/t, 2+ dp IMAGING: LEFT Knee Radiographs on ?April 19, 2025: ?mild degenerative changes seen especially in the medial compartment.? ?Calcified vasculature. LEFT?? Knee CT scan? On April 19, 2025:? Soft tissue defect seen over the superior pole of the patella.? Small areas of air seen in the subcutaneous fat.? No air visualized within the joint.? Small 4 mm calcification from the superior aspect of the patella. ASSESSMENT: 79yo M ??Presents with laceration to the distal thigh.? There does not appear to be any joint involvement.? He also has his extensor mechanism intact. ?He will be treated with an irrigation / debridement and laceration repair.? The wound was irrigated with 2 L of sterile normal saline.? The laceration was anesthetized with 10 cc 1% lidocaine plain.? After adequate anesthesia we then ?loosely approximated the laceration with simple 3-0 nylon sutures.? The wound was then dressed with Xeroform planes and Adam wrap. ? He will be discharged on oral antibiotics and knee immobilizer.? He will remain in the knee immobilizer until when he returns for a wound check. PLAN: ? Irrigation and laceration repair in the emergency department ??IV antibiotics while in the emergency department weightbearing as tolerated ?knee immobilizer full-time ?oral antibiotics upon discharge ?follow up with Orthopedics on April 22. The patient had the treatment plan explained, questions answered and seemed satisfied with the plan. There were no apparent barriers to communication. The documentation in this note may have been entered with the assistance of computer voice recognition and dictation software. Therefore, it may contain unintended errors in text, spelling, punctuation, or grammar. Herbert Reddy MD Orthopaedic Surgeon Time-Based Coding :: 60 spent with patient and on the chart (including review of chart, obtaining history, exam, reviewing outside data, placing orders, documenting exam and treatment plan, and counseling patient) on 04/19/25. PROFEE Grubber Document charge(s): Yes
== END 2025-04-19 17:10 | disposition home or self-care (01) ==
PROVIDERS: Emergency Provider Emergency Medicine; PCP Internal Medicine
DX: S81.012A Laceration without foreign body, left knee, initial encounter (principal); W29.3XXA Contact with powered garden and outdoor hand tools and machinery, initial encounter; Z23 Encounter for immunization
CPT/HCPCS: 12001; 73560; 73700; 90471; 96365; 96375; 99284; 90715; J0690; J1171; J2405